=== PATIENT | female | born 1985 | race Caucasian/White ===

== ENCOUNTER 2016-12-11 08:16 | Emergency (ER) | payer OTHER ==
--- NOTE | 2016-12-11 09:12 | ED CLINICAL REPORT ---
Clinical Report - Physicians/Mid Levels [facility] [address] [place] [address] 12/11/2016 8:17 Patient: STEPHANIE MOORE Time Seen: 826; initial patient contact. Arrived- By private vehicle. Historian- patient. HISTORY OF PRESENT ILLNESS Chief Complaint: SKIN RASH. This started about 1 week ago and is still present and worsening. It was gradual in onset and has been constant. It is described as itchy and painful. It has been located on the scalp. No cause has been identified. No recent medication or insect bite. Similar symptoms previously: Several times. Recent medical care: Not recently seen/assessed. REVIEW OF SYSTEMS No fever or chills. She has had enlarged lymph nodes. All systems otherwise negative, except as recorded above. PAST HISTORY Gastroenteritis. Immunizations. Endometriosis. Headache. Cellulitis. Back Pain. Back Injury. Hidradenitis Suppurativa ADDITIONAL SURGERIES: Foot. Medications: None. Allergies: Baclofen. Flexeril. SOCIAL HISTORY Current every day smoker. Occasional alcohol use. ADDITIONAL NOTES The nursing notes have been reviewed. PHYSICAL EXAM Vital Signs: 12/11/2016 09:14 BP: 130/68. HR: 94. RR: 20. O2 saturation: 100%. Temp: 97.9 F. Have been reviewed as normal. Appearance: Alert. Oriented X3. No acute distress. ENT: Pharynx normal. Neck: Lymphadenopathy present (Moderate posterior auricular). No right anterior neck or posterior neck lymphadenopathy or left anterior neck or posterior neck lymphadenopathy. Neck supple. CVS: Normal heart rate and rhythm. Heart sounds normal. Respiratory: No respiratory distress. Breath sounds normal. Skin: No tender indurated area. Rash present on the right and left scalp (anterior aspect, posterior aspect) (Impetigo). No abscess. Neuro: Oriented X 3. PROGRESS AND PROCEDURES Disposition: Discharged home in good and improved condition. Condition: good. CLINICAL IMPRESSION Nonbullous impetigo Acute bilateral postauricular lymphadenitis. INSTRUCTIONS Prescription Medications: Clindamycin 300 mg: take 1 capsule orally every 6 hours for 7 days Diclofenac 50 mg tablets: take 1 tablet orally every 6 hours as needed for pain. Dispense twenty (20). No refill. Follow-up: Follow up with your doctor in about four days. Call for an appointment. Screening today revealed the patient's blood pressure to be in the pre-hypertensive range. The patient should follow up with a primary care provider for blood pressure management. (Electronically signed by Caio Mills Dr. 12/12/2016 20:48)
--- NOTE | 2016-12-11 09:12 | ED ORDER SUMMARY ---
..... Patient: STEPHANIE MOORE OrderSheet [facility] VisitID: [id number] [address] [place] [address] 31y, F Registration Date/Time: 12/11/2016 ORDER SHEET Weight: 104.3 kg (stated) Allergies: Baclofen, Flexeril GENERAL ORDERS: MEDICATION ORDERS: Toradol IM 60 mg (NOW) (08:35 12/11/2016 Jennyfer Christensen) (9:11 Chris R.NAshanti) IV FLUIDS: ORDER SHEET NOTES: [Electronically signed by Angie Arndt R.N. (16:45 12/11/2016)] [Electronically signed by Caio Mills Dr. (20:48 12/12/2016)] [Electronically locked/signed by Angie Arndt R.N. (16:45 12/11/2016)]
--- NOTE | 2016-12-11 09:12 | ED ORDER SUMMARY ---
..... Patient: STEPHANIE MOORE OrderSheet [facility] VisitID: [id number] [address] [place] [address] 31y, F Registration Date/Time: 12/11/2016 ORDER SHEET Weight: 104.3 kg (stated) Allergies: Baclofen, Flexeril GENERAL ORDERS: MEDICATION ORDERS: Toradol IM 60 mg (NOW) (08:35 12/11/2016 Jennyfer Christensen) (9:11 Chris R.NAshanti) IV FLUIDS: ORDER SHEET NOTES: [Electronically signed by Angie Arndt R.N. (16:45 12/11/2016)] [Electronically signed by Caio Mills Dr. (20:48 12/12/2016)] [Electronically locked/signed by Angie Arndt R.N. (16:45 12/11/2016)]
--- NOTE | 2016-12-11 09:12 | ED CLINICAL REPORT ---
Clinical Report - Physicians/Mid Levels [facility] [address] [place] [address] 12/11/2016 8:17 Patient: STEPHANIE MOORE Time Seen: 826; initial patient contact. Arrived- By private vehicle. Historian- patient. HISTORY OF PRESENT ILLNESS Chief Complaint: SKIN RASH. This started about 1 week ago and is still present and worsening. It was gradual in onset and has been constant. It is described as itchy and painful. It has been located on the scalp. No cause has been identified. No recent medication or insect bite. Similar symptoms previously: Several times. Recent medical care: Not recently seen/assessed. REVIEW OF SYSTEMS No fever or chills. She has had enlarged lymph nodes. All systems otherwise negative, except as recorded above. PAST HISTORY Gastroenteritis. Immunizations. Endometriosis. Headache. Cellulitis. Back Pain. Back Injury. Hidradenitis Suppurativa ADDITIONAL SURGERIES: Foot. Medications: None. Allergies: Baclofen. Flexeril. SOCIAL HISTORY Current every day smoker. Occasional alcohol use. ADDITIONAL NOTES The nursing notes have been reviewed. PHYSICAL EXAM Vital Signs: 12/11/2016 09:14 BP: 130/68. HR: 94. RR: 20. O2 saturation: 100%. Temp: 97.9 F. Have been reviewed as normal. Appearance: Alert. Oriented X3. No acute distress. ENT: Pharynx normal. Neck: Lymphadenopathy present (Moderate posterior auricular). No right anterior neck or posterior neck lymphadenopathy or left anterior neck or posterior neck lymphadenopathy. Neck supple. CVS: Normal heart rate and rhythm. Heart sounds normal. Respiratory: No respiratory distress. Breath sounds normal. Skin: No tender indurated area. Rash present on the right and left scalp (anterior aspect, posterior aspect) (Impetigo). No abscess. Neuro: Oriented X 3. PROGRESS AND PROCEDURES Disposition: Discharged home in good and improved condition. Condition: good. CLINICAL IMPRESSION Nonbullous impetigo Acute bilateral postauricular lymphadenitis. INSTRUCTIONS Prescription Medications: Clindamycin 300 mg: take 1 capsule orally every 6 hours for 7 days Diclofenac 50 mg tablets: take 1 tablet orally every 6 hours as needed for pain. Dispense twenty (20). No refill. Follow-up: Follow up with your doctor in about four days. Call for an appointment. Screening today revealed the patient's blood pressure to be in the pre-hypertensive range. The patient should follow up with a primary care provider for blood pressure management. (Electronically signed by Caio Mills Dr. 12/12/2016 20:48)
--- NOTE | 2016-12-12 20:48 | ED MAR SUMMARY ---
..... Medication Administration Record [facility] [address] [place] [address] Patient: STEPHANIE MOORE Visit ID: [id number] 31y, F Weight: 104.3 kg Height/Length: 67 in BMI: 36 ALLERGIES: Baclofen, Flexeril Given 09:11 12/11/2016 Angie Arndt RMouna Medication Administered: TORADOL [IM] (KETOROLAC TROMETHAMINE), Dose: 60 mg IM. Medication Ordered: Toradol IM 60 mg (NOW).
--- NOTE | 2016-12-12 20:48 | ED NURSING NOTES ---
Clinical Report - Nurses [facility] [address] [place] [address] 12/11/2016 8:17 Patient: STEPHANIE MOORE TRIAGE Triage time 08:30 Dec 11 2016. Acuity: LEVEL 4. Chief Complaint: (Bilat ear pain behind ears is swollen lymph nodes.). KAREN COMA SCORE: [place] Coma Scale: 14- eyes open to voice (3); best verbal response- oriented x 4 (5); best motor response- obeys commands (6). --09:17 Angie Arndt R.N. 09:14 12/11/16. BP: 130/68. HR: 94. RR: 20. O2 saturation: 100%. Temp: 97.9 F. Pain level now 8/10. --09:17 Angie Arndt R.N. KAREN COMA SCORE: [place] Coma Scale: 15- eyes open spontaneously (4); best verbal response- oriented x 4 (5); best motor response- obeys commands (6). --09:18 Angie Arndt R.N. Weight: 104.3 kg stated. Height/Length: 67 inches Per Patient. BMI: 36. --09:17 Angie Arndt R.N. Medications None. --09:18 Angie Arndt R.N. Allergies Baclofen. Flexeril. --09:15 Angie Arndt R.N. History Arrived by private vehicle. Historian: patient. This started yesterday. No fever, weakness, cough, difficulty breathing or skin rash. Denies muscle aches. PAST MEDICAL HX: Immunizations: up-to-date. SOCIAL HX: Current every day heavy tobacco smoker (cigarette)- less than 1 pack per day. Occasional alcohol use. SELF HARM ASSESSMENT: A self harm assessment was performed. The patient answered "no" to the question "Have you recently felt down, depressed, or hopeless?" and "Do you have thoughts of harming or killing yourself?". FALL RISK ASSESSMENT: Fall risk assessment completed. No fall risk identified. NUTRITIONAL RISK ASSESSMENT: The nutritional risk assessment revealed no deficiencies. FUNCTIONAL ASSESSMENT: Functional assessment: no impairments noted. LEARNING NEEDS ASSESSMENT: The learning needs assessment revealed no barriers. ABUSE ASSESSMENT: Abuse assessment: (yes) The patient was asked "Do you feel safe in your home?". SKIN INTEGRITY ASSESSMENT: Skin integrity risk assessment completed. No skin integrity risk identified. --:17 Angie Arndt R.N. PROBLEMS: Gastroenteritis. Immunizations. LNMP - Last Normal Menstrual Period. Endometriosis. Headache. Cellulitis. Back Pain. Back Injury. --:15 Angie Arndt R.N. Hidradenitis Suppurativa [RuleOut]. --:15 Angie Arndt R.N. ADDITIONAL SURGERIES: Foot. --:15 Angie Arndt R.N. Interventions ID band on patient. --:17 Angie Arndt R.N. PHYSICAL ASSESSMENT Ambulatory to room. ( Swollen lymp nodes behind ears). GENERAL / NEURO / PSYCH: Alert. Oriented X 4. Appears in no acute distress. Appears in pain and anxious. HEENT: Pupils equal, round and reactive to light. No facial asymmetry noted. Mucous membranes are pink. RESPIRATORY: Respirations not labored. Chest nontender. Breath sounds within normal limits. CVS: Normal sinus rhythm noted. Capillary refill less than 2 seconds. Pulses within normal limits. GI / : Abdomen soft and nontender and normal bowel sounds. SKIN: Skin intact. Skin is warm and dry. Normal skin turgor. --:18 Angie Arndt R.N. NURSING PROGRESS NOTES 09:11 12/11/2016 Toradol (Ketorolac Tromethamine) IM 60 mg given. Given in the right gluteus adrian and left gluteus adrian (split dose). Allergies verified and confirmed 5 rights. --:11 Angie Arndt R.N. Monitoring of patient in place. Reassurance given. Call light placed in reach. Side rails up x 1. Bed placed in lowest position. Brakes of bed on. --:19 Angie Arndt R.N. DISPOSITION / DISCHARGE Departure time: :Dec 11 2016. Condition at departure: improved. No learning barriers present. Discharge instructions provided and reviewed with the patient. Reviewed warnings. Reviewed medication(s). Treatments reviewed. Reviewed referrals. Patient verbalized understanding. Written instructions provided in Danish. The patient was discharged home and accompanied by family. She left the Emergency Department ambulatory and via private vehicle. Dope House Operator Helper driving. --09:19 Angie Arndt R.N. 09:14 12/11/16. BP: 130/68. HR: 94. RR: 20. O2 saturation: 100%. Temp: 97.9 F. Pain level now 04/23. --09:19 Angie Arndt R.N. Locked/Released at 12/11/2016 16:45 by Angie Arndt R.N.
--- NOTE | 2016-12-12 20:48 | ED MED RECONCILIATION SUMMARY ---
Patient: STEPHANIE MOORE Medication Reconciliation Report [facility] VisitID: [id number] [address] [place] [address] 31y, F Registration Date/Time: 12/11/2016 Weight: 104.3 kg Height/Length: 67 in. BMI: 36.0 ALLERGIES: Baclofen, Flexeril The patient's Home Medications are listed below: NONE. The source(s) of the original Home Medication information: Not obtained. The following Medications were given to the patient in the Emergency Department: Toradol [IM] IM 60 mg, administered: 12/11/2016 9:11:00 AM The following Medications were prescribed to the patient: Clindamycin 300 mg: take 1 capsule orally every 6 hours for 7 days -- Caio Mills Dr. Diclofenac 50 mg tablets: take 1 tablet orally every 6 hours as needed for pain. Dispense twenty (20). No refill. -- Caio Mills Dr.
--- NOTE | 2016-12-12 20:48 | ED DISCHARGE INSTRUCTIONS ---
Patient: STEPHANIE MOORE General Instructions [facility] VisitID: [id number] [place] [address] 31y, F Registration Date/Time: 12/11/2016 Nonbullous impetigo Acute bilateral postauricular lymphadenitis. INSTRUCTIONS Prescription Medications: Clindamycin 300 mg: take 1 capsule orally every 6 hours for 7 days Diclofenac 50 mg tablets: take 1 tablet orally every 6 hours as needed for pain. Dispense twenty (20). No refill. Follow-up: Follow up with your doctor in about four days. Call for an appointment. Screening today revealed the patient's blood pressure to be in the pre-hypertensive range. The patient should follow up with a primary care provider for blood pressure management. ADDITIONAL INFORMATION Impetigo Impetigo is the name for a bacterial infection of the skin. It is common in children. It may start as an infected insect bite or scratch and spread rapidly to other areas of the body. It is contagious and can be given to other children by touching. The sores usually have a montano brown crust and grow gradually larger as they spread. Impetigo requires treatment with an antibiotic. Home care The following guidelines will help you care for your infection at home: Trim fingernails and cover sores with an adhesive bandage if necessary to prevent scratching. Picking at the sores may leave a scar. Wash hands (yours and your child's) often. This will avoid spreading the infection to other parts of the body and to other children. Do not let your child share washcloths, towels, pillows, sheets, or clothes with others. Wash these items in hot water before using again. The sores should be washed three times a day with soap and water. Use a washcloth to scrub the sores and remove the crust. Then apply an antibacterial cream as directed. If antibiotic pills or liquid was prescribed, be sure your child takes all the medicine until it is gone. Your child should stay out of school until completing two full days of antibiotic treatment. Use acetaminophen for fever, fussiness or discomfort, unless another medicine was prescribed. In infants over six months of age, you may use ibuprofen instead of acetaminophen. If your child has chronic liver or kidney disease or has ever had a stomach ulcer or GI bleeding, talk with your doctor before using these medicines. (Aspirin should never be used in anyone under 18 years of age who is ill with a fever. It may cause severe liver damage. Follow-up care Follow up with your doctor or this facility if the sores continue to spread after three days of treatment. It will take about 710 days to heal completely. When to seek medical care Get prompt medical attention if any of the following occur: Increasing number of sores or spreading areas of redness after two days of treatment with antibiotics Increasing swelling, or pain Fever of 100.4F (38C) oral or 101.4F (38.5C) rectal or higher, not better with fever medication Increased amounts of fluid or pus coming from the sores Unusual drowsiness, weakness, or change in behavior Loss of appetite or vomiting Clindamycin Hydrochloride Oral capsule What is this medicine? CLINDAMYCIN (KLIN da VIVIEN sin) is a lincosamide antibiotic. It is used to treat certain kinds of bacterial infections. It will not work for colds, flu, or other viral infections. How should I use this medicine? Take this medicine by mouth with a full glass of water. Follow the directions on the prescription label. You can take this medicine with food or on an empty stomach. If the medicine upsets your stomach, take it with food. Take your medicine at regular intervals. Do not take your medicine more often than directed. Take all of your medicine as directed even if you think your are better. Do not skip doses or stop your medicine early. Talk to your armoring machine operator regarding the use of this medicine in children. Special care may be needed. What side effects may I notice from receiving this medicine? Side effects that you should report to your doctor or health health care administrator as soon as possible: allergic reactions like skin rash, itching or hives, swelling of the face, lips, or tongue dark urine pain on swallowing redness, blistering, peeling or loosening of the skin, including inside the mouth unusual bleeding or bruising unusually weak or tired yellowing of eyes or skin Side effects that usually do not require medical attention (report to your doctor or health health care administrator if they continue or are bothersome): diarrhea itching in the rectal or genital area joint pain nausea, vomiting stomach pain What may interact with this medicine? chloramphenicol erythromycin kaolin products What if I miss a dose? If you miss a dose, take it as soon as you can. If it is almost time for your next dose, take only that dose. Do not take double or extra doses. Where should I keep my medicine? Keep out of the reach of children. Store at room temperature between 20 and 25 degrees C (68 and 77 degrees F). Throw away any unused medicine after the expiration date. What should I tell my health care provider before I take this medicine? They need to know if you have any of these conditions: kidney disease liver disease stomach problems like colitis an unusual or allergic reaction to clindamycin, lincomycin, or other medicines, foods, dyes like tartrazine or preservatives or trying to get breast-feeding What should I watch for while using this medicine? Tell your doctor or healthcare professional if your symptoms do not start to get better or if they get worse. Do not treat diarrhea with over the counter products. Contact your doctor if you have diarrhea that lasts more than 2 days or if it is severe and watery. You have been given the following additional information: Impetigo (Child) Clindamycin Hydrochloride Oral capsule (Electronically signed by Caio Mills Dr. 12/12/2016 20:48)
--- NOTE | 2016-12-12 20:48 | ED MAR SUMMARY ---
..... Medication Administration Record [facility] [address] [place] [address] Patient: STEPHANIE MOORE Visit ID: [id number] 31y, F Weight: 104.3 kg Height/Length: 67 in BMI: 36 ALLERGIES: Baclofen, Flexeril Given 09:11 12/11/2016 Angie Arndt RMouna Medication Administered: TORADOL [IM] (KETOROLAC TROMETHAMINE), Dose: 60 mg IM. Medication Ordered: Toradol IM 60 mg (NOW).
--- NOTE | 2016-12-12 20:48 | ED NURSING NOTES ---
Clinical Report - Nurses [facility] [address] [place] [address] 12/11/2016 8:17 Patient: STEPHANIE MOORE TRIAGE Triage time 08:30 Dec 11 2016. Acuity: LEVEL 4. Chief Complaint: (Bilat ear pain behind ears is swollen lymph nodes.). KAREN COMA SCORE: [place] Coma Scale: 14- eyes open to voice (3); best verbal response- oriented x 4 (5); best motor response- obeys commands (6). --09:17 Angie Arndt R.N. 09:14 12/11/16. BP: 130/68. HR: 94. RR: 20. O2 saturation: 100%. Temp: 97.9 F. Pain level now 8/10. --09:17 Angie Arndt R.N. KAREN COMA SCORE: [place] Coma Scale: 15- eyes open spontaneously (4); best verbal response- oriented x 4 (5); best motor response- obeys commands (6). --09:18 Angie Arndt R.N. Weight: 104.3 kg stated. Height/Length: 67 inches Per Patient. BMI: 36. --09:17 Angie Arndt R.N. Medications None. --09:18 Angie Arndt R.N. Allergies Baclofen. Flexeril. --09:15 Angie Arndt R.N. History Arrived by private vehicle. Historian: patient. This started yesterday. No fever, weakness, cough, difficulty breathing or skin rash. Denies muscle aches. PAST MEDICAL HX: Immunizations: up-to-date. SOCIAL HX: Current every day heavy tobacco smoker (cigarette)- less than 1 pack per day. Occasional alcohol use. SELF HARM ASSESSMENT: A self harm assessment was performed. The patient answered "no" to the question "Have you recently felt down, depressed, or hopeless?" and "Do you have thoughts of harming or killing yourself?". FALL RISK ASSESSMENT: Fall risk assessment completed. No fall risk identified. NUTRITIONAL RISK ASSESSMENT: The nutritional risk assessment revealed no deficiencies. FUNCTIONAL ASSESSMENT: Functional assessment: no impairments noted. LEARNING NEEDS ASSESSMENT: The learning needs assessment revealed no barriers. ABUSE ASSESSMENT: Abuse assessment: (yes) The patient was asked "Do you feel safe in your home?". SKIN INTEGRITY ASSESSMENT: Skin integrity risk assessment completed. No skin integrity risk identified. --:17 Angie Arndt R.N. PROBLEMS: Gastroenteritis. Immunizations. LNMP - Last Normal Menstrual Period. Endometriosis. Headache. Cellulitis. Back Pain. Back Injury. --:15 Angie Arndt R.N. Hidradenitis Suppurativa [RuleOut]. --:15 Angie Arndt R.N. ADDITIONAL SURGERIES: Foot. --:15 Angie Arndt R.N. Interventions ID band on patient. --:17 Angie Arndt R.N. PHYSICAL ASSESSMENT Ambulatory to room. ( Swollen lymp nodes behind ears). GENERAL / NEURO / PSYCH: Alert. Oriented X 4. Appears in no acute distress. Appears in pain and anxious. HEENT: Pupils equal, round and reactive to light. No facial asymmetry noted. Mucous membranes are pink. RESPIRATORY: Respirations not labored. Chest nontender. Breath sounds within normal limits. CVS: Normal sinus rhythm noted. Capillary refill less than 2 seconds. Pulses within normal limits. GI / : Abdomen soft and nontender and normal bowel sounds. SKIN: Skin intact. Skin is warm and dry. Normal skin turgor. --:18 Angie Arndt R.N. NURSING PROGRESS NOTES 09:11 12/11/2016 Toradol (Ketorolac Tromethamine) IM 60 mg given. Given in the right gluteus adrian and left gluteus adrian (split dose). Allergies verified and confirmed 5 rights. --:11 Angie Arndt R.N. Monitoring of patient in place. Reassurance given. Call light placed in reach. Side rails up x 1. Bed placed in lowest position. Brakes of bed on. --:19 Angie Arndt R.N. DISPOSITION / DISCHARGE Departure time: :Dec 11 2016. Condition at departure: improved. No learning barriers present. Discharge instructions provided and reviewed with the patient. Reviewed warnings. Reviewed medication(s). Treatments reviewed. Reviewed referrals. Patient verbalized understanding. Written instructions provided in Egyptian. The patient was discharged home and accompanied by family. She left the Emergency Department ambulatory and via private vehicle. Greige Goods Examiner driving. --09:19 Angie Arndt R.N. 09:14 12/11/16. BP: 130/68. HR: 94. RR: 20. O2 saturation: 100%. Temp: 97.9 F. Pain level now 04/23. --09:19 Angie Arndt R.N. Locked/Released at 12/11/2016 16:45 by Angie Arndt R.N.
--- NOTE | 2016-12-12 20:48 | ED MED RECONCILIATION SUMMARY ---
Patient: STEPHANIE MOORE Medication Reconciliation Report [facility] VisitID: [id number] [address] [place] [address] 31y, F Registration Date/Time: 12/11/2016 Weight: 104.3 kg Height/Length: 67 in. BMI: 36.0 ALLERGIES: Baclofen, Flexeril The patient's Home Medications are listed below: NONE. The source(s) of the original Home Medication information: Not obtained. The following Medications were given to the patient in the Emergency Department: Toradol [IM] IM 60 mg, administered: 12/11/2016 9:11:00 AM The following Medications were prescribed to the patient: Clindamycin 300 mg: take 1 capsule orally every 6 hours for 7 days -- Caio Mills Dr. Diclofenac 50 mg tablets: take 1 tablet orally every 6 hours as needed for pain. Dispense twenty (20). No refill. -- Caio Mills Dr.
== END 2016-12-11 09:20 | disposition home or self-care (01) ==
LOC: ED SRH 08:16
DX: L01.01 Non-bullous impetigo (principal); L04.8 Acute lymphadenitis of other sites; F17.210 Nicotine dependence, cigarettes, uncomplicated; Z88.8 Allergy status to other drugs, medicaments and biological substances

== ENCOUNTER 2017-02-14 04:31 | Emergency (ER) | payer OTHER ==
--- NOTE | 2017-02-14 06:43 | ED NURSING NOTES ---
Clinical Report - Nurses [place] [address] [place] [address] 02/14/2017 4:32 Patient: STEPHANIE MOORE TRIAGE Triage time 04:40. Acuity: LEVEL 3. Chief Complaint: ABDOMINAL PAIN, NAUSEA and VOMITING and FEVER, CHILLS, ACHES, PAINFUL URINATION and FLANK PAIN. --05:00 Adwoa Rae R.N. 04:44 02/14/17. BP: 125/89 taken on the left arm, while lying. HR: 125. RR: 18. O2 saturation: 100% on room air. Temp: 98.6 F. Pain level now: 06/23. --05:00 Adwoa Rae R.N. Weight: 86.1 kg stated. Height/Length: 67 inches Per Patient. BMI: 29.8. --04:57 Adwoa Rae R.N. Medications None. --04:58 Adwoa Rae R.N. Allergies No Known Drug Allergy. --04:58 Adwoa Rae R.N. History Arrived by private vehicle. Historian: patient. Accompanied by friend. ( 2 week of burning with urination, flank pain for 2 days). PAST MEDICAL HX: Immunizations: up-to-date. Last normal menstrual period- 1 months ago. Sexual history - sexually active. No contraception. SOCIAL HX: Light tobacco smoker (cigarette)- less than 1/2 a pack per day. No alcohol use or drug use. No infectious disease exposure. No known contact with a sick individual. ABUSE ASSESSMENT: No report of abuse. SELF HARM ASSESSMENT: A self harm assessment was performed. The patient answered "no" to the question "Have you recently felt down, depressed, or hopeless?", "Have you noticed less interest or pleasure in doing things?", "Do you have thoughts of harming or killing yourself?", "Are you here because you tried to hurt yourself?", "Have you ever tried to hurt yourself before today?", "Have you recently had thoughts about harming or killing others?" and "Do you have any dangerous items in your possession?". FALL RISK ASSESSMENT: Fall risk assessment completed. No fall risk identified. NUTRITIONAL RISK ASSESSMENT: The nutritional risk assessment revealed no deficiencies. FUNCTIONAL ASSESSMENT: Functional assessment: no impairments noted. LEARNING NEEDS ASSESSMENT: The learning needs assessment revealed no barriers. SKIN INTEGRITY ASSESSMENT: Skin integrity risk assessment completed. No skin integrity risk identified. --05:00 Adwoa Rae R.N. PROBLEMS: Lymphadenitis. Impetigo. Gastroenteritis. Endometriosis. Headache. Cellulitis. Back Pain. Back Injury. --04:59 Adwoa Rae R.N. ADDITIONAL SURGERIES: Foot. --04:59 Adwoa Rae R.N. Interventions ID band on patient. --05:00 Adwoa Rae R.N. PHYSICAL ASSESSMENT Ambulatory to room. GENERAL / NEURO / PSYCH: Alert. Oriented X 4. Appears in pain. HEENT: Mucous membranes are pink. RESPIRATORY: Respirations not labored. Breath sounds within normal limits. CVS: Normal sinus rhythm noted. Cardiac rhythm: sinus tachycardia. Capillary refill less than 2 seconds. GI / : The patient has had constant nausea. Abdomen soft. Bowel sounds within normal limits. A moderate amount of clear, white and yellow vaginal discharge present. SKIN: Skin is warm and dry. --05:02 Adwoa Rae R.N. NURSING PROGRESS NOTES Patient gowned. Two patient identifiers checked. Call light placed in reach. Side rails up x 2. Bed placed in lowest position. Brakes of bed on. --05:02 Adwoa Rae R.N. Patient ID band checked for patient name: patient confirmed. Instructions provided to collect clean catch urine and patient verbalized understanding. Clean catch urine collected with return of robb-colored cloudy urine; sample sent to lab for urinalysis. Specimen labeled in the presence of the patient. --05:02 Adwoa Rae R.N. Patient ready for evaluation- chart flagged. --05:02 Adwoa Rae R.N. 05:11 02/14/2017 Site #1 started via IV in the left antecubital space with an 20g angiocath, with aseptic technique and good blood return; one attempt. Blood drawn: rainbow set. Labeled in the presence of the patient and sent to the lab. Saline lock flushed with 10 mL saline. --05:19 Adwoa Rae R.N. 05:11 02/14/2017 Started bag #1 1000 mL IV Fluids IV NS (Saline); bolus of 1000 mL wide open then over 1 hour(s) via site #1. Allergies verified and confirmed 5 rights. IV patency established. IV site checked: no pain, redness, or swelling. IV flushed thoroughly pre- and post-medication administration. --05:19 Adwoa Rae R.N. 05:25 02/14/2017 Toradol IVP 30 mg given over 2 minute(s) via site #1. Allergies verified and confirmed 5 rights. IV patency established. IV site checked: no pain, redness, or swelling. IV flushed thoroughly pre- and post-medication administration. IVP given by RN. --05:30 Adwoa Rae R.N. 05:27 02/14/2017 Zofran (Ondansetron HCl) IVP 4 mg given over 2 minute(s) via site #1. Allergies verified and confirmed 5 rights. IV patency established. IV site checked: no pain, redness, or swelling. IV flushed thoroughly pre- and post-medication administration. IVP given by RN. --05:30 Adwoa Rae R.N. 06:30 02/14/2017 Started 1 gm of Rocephin (CefTRIAXone Sodium) IVPB in bag #1 50 mL; over 20 minute(s) via site #1 via IV pump. Allergies verified and confirmed 5 rights. IV patency established. IV site checked: no pain, redness, or swelling. IV flushed thoroughly pre- and post-medication administration. --06:30 Adwoa Rae R.N. 06:31 02/14/2017 IV Fluids IV NS Discontinued: bag #1 completed. Total amount infused: 1000 mL. IV patency established. IV site checked: no pain, redness, or swelling. IV flushed thoroughly. --06:31 Adwoa Rae R.N. DISPOSITION / DISCHARGE Condition at departure: stable. The goals identified in the patient's plan of care were met. No learning barriers present. Discharge instructions provided and reviewed with the patient. Reviewed medication(s) side effects, precautions, dosing and course information. Prescription(s) given to the patient. Reviewed need for increased fluid intake. Patient verbalized understanding. Written instructions provided in Cymro. ( Follow up with your PCP in three days. Increase fluids and rest until feeling better. You may take anti-inflammatories as needed for pain. Take medications as prescribed. Patient verbalized understanding and had no additional questions at this time.). The patient was discharged by the physician. She was discharged home and accompanied by treasury accountant. She left the Emergency Department ambulatory and via private vehicle. [place] [employer] driving. FALL RISK ASSESSMENT: Fall risk assessment completed. No fall risk identified. --07:05 Vida Malik 06:53 02/14/17. BP: 101/63. HR: 99. RR: 20. O2 saturation: 96% on room air. Temp: 98.1 F (oral). Pain level now: 7/10. --07:05 Vida Malik 06:55 02/14/2017 Site #1 removed upon discharge. Catheter intact. Bandaid applied. --07:05 Vida Malik. Locked/Released at 02/15/2017 4:47 by Adwoa Rae R.N.
--- NOTE | 2017-02-14 06:43 | ED ORDER SUMMARY ---
..... Patient: STEPHANIE MOORE OrderSheet [facility] VisitID: [id number] [address] [place] [address] 31y, F Registration Date/Time: 02/14/2017 ORDER SHEET Weight: 86.1 kg (stated) Allergies: No Known Drug Allergy GENERAL ORDERS: CBC w Diff Urgent (05:03 02/14/2017 Jennyfer Christensen) (Ack 5:04 Bishnuuga) (5:19 Luigi R.N.) CMP Urgent (05:02/14/2017 Jennyfer Christensen) (Ack 5:04 Bishnuuga) (5:19 Luigi R.N.) UA-Culture if indicated Urgent (05:02/14/2017 Jennyfer Christensen) (Ack 5:04 Bishnuuga) (5:19 Luigi R.N.) Urine Drug Screen Urgent (05:02/14/2017 Jennyfer Christensen) (Ack 5:04 Bishnuuga) (5:19 Luigi R.N.) Urine Urgent (05:03 02/14/2017 Jennyfer Christensen) (Ack 5:04 Bar) (5:20 Luigi R.N.) MEDICATION ORDERS: IV FLUIDS: IV NS : initial bolus none -, then 1000 mL/hr for X1 (NOW) (05:02 02/14/2017 Jennyfer Christensen) (5:19 Luigi R.N.) Toradol IV 30 mg (NOW) (05:10 02/14/2017 Jennyfer Christensen) (5:30 Luigi R.N.) Zofran IV 4 mg (NOW) (05:10 02/14/2017 Jennyfer Christensen) (5:30 Luigi R.N.) Rocephin IV 1 gm/50mL (NOW) (06:17 02/14/2017 Jennyfer Christensen) (Ack 6:25 Luigi R.N.) (6:30 Luigi R.N.) ORDER SHEET NOTES: [Electronically signed by Caio Mills Dr. (20:46 02/14/2017)] [Electronically signed by Adwoa Rae R.N. (04:47 02/15/2017)] [Electronically locked/signed by Adwoa Rae R.N. (04:47 02/15/2017)]
--- NOTE | 2017-02-14 06:43 | ED ORDER SUMMARY ---
..... Patient: STEPHANIE MOORE OrderSheet [facility] VisitID: [id number] [address] [place] [address] 31y, F Registration Date/Time: 02/14/2017 ORDER SHEET Weight: 86.1 kg (stated) Allergies: No Known Drug Allergy GENERAL ORDERS: CBC w Diff Urgent (05:03 02/14/2017 Jennyfer Christensen) (Ack 5:04 Bishnuuga) (5:19 Luigi R.N.) CMP Urgent (05:02/14/2017 Jennyfer Christensen) (Ack 5:04 Bishnuuga) (5:19 Luigi R.N.) UA-Culture if indicated Urgent (05:02/14/2017 Jennyfer Christensen) (Ack 5:04 Bishnuuga) (5:19 Luigi R.N.) Urine Drug Screen Urgent (05:02/14/2017 Jennyfer Christensen) (Ack 5:04 Bishnuuga) (5:19 Luigi R.N.) Urine Urgent (05:03 02/14/2017 Jennyfer Christensen) (Ack 5:04 Bar) (5:20 Luigi R.N.) MEDICATION ORDERS: IV FLUIDS: IV NS : initial bolus none -, then 1000 mL/hr for X1 (NOW) (05:02 02/14/2017 Jennyfer Christensen) (5:19 Luigi R.N.) Toradol IV 30 mg (NOW) (05:10 02/14/2017 Jennyfer Christensen) (5:30 Luigi R.N.) Zofran IV 4 mg (NOW) (05:10 02/14/2017 Jennyfer Christensen) (5:30 Luigi R.N.) Rocephin IV 1 gm/50mL (NOW) (06:17 02/14/2017 Jennyfer Christensen) (Ack 6:25 Luigi R.N.) (6:30 Luigi R.N.) ORDER SHEET NOTES: [Electronically signed by Caio Mills Dr. (20:46 02/14/2017)] [Electronically signed by Adwoa Rae R.N. (04:47 02/15/2017)] [Electronically locked/signed by Adwoa Rae R.N. (04:47 02/15/2017)]
--- NOTE | 2017-02-14 06:43 | ED CLINICAL REPORT ---
Clinical Report - Physicians/Mid Levels [facility] [address] [place] [address] 02/14/2017 4:32 Patient: STEPHANIE MOORE Time Seen: 04:45; initial patient contact. Arrived- By private vehicle. Historian- patient. HISTORY OF PRESENT ILLNESS Chief Complaint: FLANK PAIN. At its maximum, severity described as moderate. When seen in the E.D., severity described as moderate. Modifying factors. Not worsened by anything. Not relieved by anything. It is described as sharp and burning. No radiation. It is described as located in the right abdomen. This started 2 days. The patient has had nausea. No vomiting or diarrhea. Similar symptoms previously: None. Recent medical care: The patient was seen recently in a clinic (2 weeks ago and Tx'd for a UTI). REVIEW OF SYSTEMS The patient has had fever, chills and pain on urination. The patient has had urinary frequency. All systems otherwise negative, except as recorded above. PAST HISTORY Gastroenteritis. Immunizations. Endometriosis. Headache. Cellulitis. Back Pain. Back Injury. Hidradenitis Suppurativa ADDITIONAL SURGERIES: Foot. Medications: None. Allergies: No Known Drug Allergy. SOCIAL HISTORY Current every day smoker. ADDITIONAL NOTES The nursing notes have been reviewed. PHYSICAL EXAM Vital Signs: 02/14/2017 04:44 BP: 125/89. HR: 125. RR: 18. O2 saturation: 100%. Temp: 98.6 F. Pain level now: 10/10. Have been reviewed. Blood pressure normal. Tachycardic. Respiratory rate normal. Temperature normal. Oxygen saturation normal. Appearance: Alert. Oriented X3. No acute distress. Eyes: Eyes normal inspection. ENT: Dry mucous membranes present. CVS: Tachycardia. Heart sounds normal. Rhythm normal. Respiratory: No respiratory distress. Breath sounds normal. Abdomen: Soft. Moderate tenderness in the right side of the abdomen with guarding present. No rebound tenderness or obturator or psoas sign present. Bowel sounds normal. Back: Moderate soft-tissue tenderness in the right lower and left lower lumbar area. No CVA tenderness or vertebral point tenderness. Skin: Skin warm and dry. Normal skin color. Extremities: No lower extremity edema. Neuro: Oriented X 3. No motor deficit. LABS, X-RAYS, AND EKG Laboratory Tests: UA-Culture if indicated: (MERISSA: 02/14/2017 05:00) ( [facility] 02/14/2017 05:39) Final results Test Result Flag Units (Reference) URINE COLOR YELLOW URINE APPEARANCE TURBID URINE GLUCOSE NEGATIVE (NEGATIVE) URINE BILIRUBIN NEGATIVE (NEGATIVE) URINE BILIRUBIN ICTOTEST NEGATIVE (NEGATIVE) URINE KETONE 2+ (NEGATIVE) URINE SPECIFIC GRAVITY 1.025 (1.010-1.030) URINE PH 6.0 (5.0-8.0) URINE PROTEIN 2+ (NEGATIVE) URINE UROBILINOGEN 4.0 EU/dL (0.2-1.0) The urobilinogen reagent area may react with interferingsubstances known to react with Eder's reagent such asp-aminosalicylic acid and sulfonamides. Atypical colorreactions may be obtained in the presence of highconcentrations of p-aminobenzoic acid. The absence ofurobilinogen cannot be determined with this test. URINE NITRITE POSITIVE (NEGATIVE) URINE BLOOD 2+ (NEGATIVE) URINE LEUK ESTERASE POSITIVE (NEGATIVE) URINE RBC 5-10 rbc/hpf (0-1) URINE WBC 25-50 wbc/hpf (0-1) URINE EPITHELIAL CELLS 1-3 EPI/hpf (0-5) URINE BACTERIA MANY (4+) (NONE SEEN) URINE COMMENT CULTURE INDICATED URINE CULTURES ARE SET-UP BASED ON THE FOLLOWING CRITERIA:POSITIVE NITRITEPOSITIVE LEUKOCYTE ESTERASEGREATER THAN 10 WHITE BLOOD CELLSMODERATE (2+) OR GREATER BACTERIA Urine: (MERISSA: 02/14/2017 05:00) ( [facility] 02/14/2017 05:35) Final results Test Result Flag Units (Reference) URINE NEGATIVE CBC w Diff: (MERISSA: 02/14/2017 05:11) ( [facility] 02/14/2017 06:15) Final results Test Result Flag Units (Reference) WHITE BLOOD COUNT 11.2 K/uL (4.5-11.5) RED BLOOD COUNT 4.26 M/uL (4.00-5.20) HEMOGLOBIN 12.1 gm/dL (12.0-16.0) HEMATOCRIT 36.7 % (36.0-46.0) MEAN CELL VOLUME 86 fL (80-100) MEAN CORPUSCULAR HGB 28 pg (26-34) MEAN CORPUSCULAR HGB CONC 33 g/dL (31-37) RED CELL DISTRIBUTION WIDTH 13.4 % (11.6-14.8) PLATELET COUNT 204 K/uL (150-400) NEUTROPHIL % 76.5 H % (50-75) LYMPH % 12.9 L % (25-40) MONO % 10.3 % (3-14) EOSINOPHIL % 0.2 % (0-4) BASOPHIL % 0.1 % (0-2) Urine Drug Screen: (MERISSA: 02/14/2017 05:00) ( [facility] 02/14/2017 05:46) Final results Test Result Flag Units (Reference) AMPHETAMINE/METHAMPHETAMINE POSITIVE H (NEGATIVE) BARBITURATE NEGATIVE (NEGATIVE) BENZODIAZEPINE NEGATIVE (NEGATIVE) CANNABINOID NEGATIVE (NEGATIVE) COCAINE NEGATIVE (NEGATIVE) ECSTASY NEGATIVE (NEGATIVE) METHADONE NEGATIVE (NEGATIVE) OPIATE POSITIVE H (NEGATIVE) The urine drug screen is a qualitative screening test fordrug overdose and abuse. All screen results should beconsidered as presumptive.Drugs screened for are as follows:BenzodiazepinesCocaineAmphetamines/MetamphetaminesTHC (Tetrahydrocannabinol)OpiatesBarbituratesEcstasyMethadonePositive results are unconfirmed. For confirmation, notifythe lab for the specimen to be sent to the reference lab.All confirmations must be performed by a differentmethodology.The ingestion of natural herbal and plant productscontaining Ephedra/Ephedra metabolites can produce in urineone or more substances capable of cross reacting withamphetamine/methamphetamine immunoassays. These testsprovide a preliminary result only. A more specificalternative chemical method must be used to obtain aconfirmed analytical result. CMP: (MERISSA: 02/14/2017 05:11) ( Wig[facility] 02/14/2017 05:48) Final results Test Result Flag Units (Reference) GLUCOSE 118 H mg/dL (70-110) BUN 16 mg/dL (7-18) CREATININE 1.1 mg/dL (0.6-1.3) Estimated GFR >60 mL/min Estimated GFR- >60 mL/min Note: Persistent reduction over 3 months in eGFR<60 mL/min/1.73 m2 defines CKD. Patients with eGFR values>=60 mL/min/1.73 m2 may also have CKD if evidence ofpersistent proteinuria. Additional information may be foundat www.kidney.org. SODIUM 138 mmol/L (136-145) POTASSIUM 3.4 L mmol/L (3.5-5.1) CHLORIDE 101 mmol/L (98-107) CARBON DIOXIDE 24 mmol/L (21-32) CALCIUM 8.9 mg/dL (8.5-10.1) TOTAL PROTEIN 6.9 g/dL (6.4-8.2) ALBUMIN 2.8 L g/dL (3.3-5.0) BILIRUBIN, TOTAL 0.6 mg/dL (0.0-1.0) ALKALINE PHOSPHATASE 85 U/L (46-116) AST (SGOT) 14 L U/L (15-37) ALT (SGPT) 20 U/L (12-78) . PROGRESS AND PROCEDURES Course of Care: Toradol 30 mg IVP given. Zofran 4 mg IVP given. Physical exam findings are improved. Symptoms much better. Disposition: Discharged home in good and improved condition. Condition: good. CLINICAL IMPRESSION Acute urinary tract infection with cystitis. INSTRUCTIONS Your Current Medications: CONTINUE TAKING THE FOLLOWING MEDICATIONS: None*. Prescription Medications: Zofran (orally disintegrating tablets) 4 mg: take 1 orally every 6 hours as needed for nausea. Dispense ten (10). No refill. Substitution is permissible. Cefixime 400 mg: take 1 tab orally every day for 7 days. No refill. Follow-up: Follow up with your doctor in about two days. Call for an appointment. Screening today revealed the patient's blood pressure to be in the pre-hypertensive range. The patient should follow up with a primary care provider for blood pressure management. (Electronically signed by Caio Mills Dr. 02/14/2017 20:46)
--- NOTE | 2017-02-15 04:48 | ED MAR SUMMARY ---
..... Medication Administration Record [facility] [address] [place] [address] Patient: STEPHANIE MOORE Visit ID: [id number] 31y, F Weight: 86.1 kg Height/Length: 67 in BMI: 29.8 ALLERGIES: No Known Drug Allergy Start 05:11 02/14/2017 Adwoa Rae R.N., Stop 06:31 02/14/2017 Adwoa Rae R.N. Medication Administered: IV NS (SALINE), Dose: IV Fluids over 1 hour(s), Bolus: 1000 mL wide open, Dispensed: 1000 mL bag, Site: #1 left AC. Medication Ordered: IV NS : initial bolus none -, then 1000 mL/hr for X1 (NOW). Given 05:25 02/14/2017 Adwoa Rae R.N. Medication Administered: TORADOL [IVP], Dose: 30 mg IVP over 2 minute(s), Site: #1 left AC. Medication Ordered: Toradol IV 30 mg (NOW). Given 05:27 02/14/2017 Adwoa Rae R.N. Medication Administered: ZOFRAN [IVP] (ONDANSETRON HCL), Dose: 4 mg IVP over 2 minute(s), Site: #1 left AC. Medication Ordered: Zofran IV 4 mg (NOW). Start 06:30 02/14/2017 Adwoa Rae R.N. Medication Administered: ROCEPHIN [IVPB] (CEFTRIAXONE SODIUM), Dose: 1 gm IVPB over 20 minute(s), Dispensed: 50 mL bag, Site: #1 left AC. Medication Ordered: Rocephin IV 1 gm/50mL (NOW).
--- NOTE | 2017-02-15 04:48 | ED DISCHARGE INSTRUCTIONS ---
Patient: STEPHANIE MOORE General Instructions [facility] VisitID: [id number] [place] [address] 31y, F Registration Date/Time: 02/14/2017 Acute urinary tract infection with cystitis. INSTRUCTIONS Your Current Medications: CONTINUE TAKING THE FOLLOWING MEDICATIONS: None*. Prescription Medications: Zofran (orally disintegrating tablets) 4 mg: take 1 orally every 6 hours as needed for nausea. Dispense ten (10). No refill. Substitution is permissible. Cefixime 400 mg: take 1 tab orally every day for 7 days. No refill. Follow-up: Follow up with your doctor in about two days. Call for an appointment. Screening today revealed the patient's blood pressure to be in the pre-hypertensive range. The patient should follow up with a primary care provider for blood pressure management. ADDITIONAL INFORMATION Bladder Infection,Female (Adult) A bladder infection ("cystitis" or "UTI") usually causes a constant urge to urinate and a burning when passing urine. Urine may be cloudy, smelly or dark. There may be pain in the lower abdomen. A bladder infection occurs when bacteria from the vaginal area enter the bladder opening (urethra). This can occur from sexual intercourse, wearing tight clothing, dehydration and other factors. Home Care: Drink lots of fluids (at least 6-8 glasses a day, unless you must restrict fluids for other medical reasons). This will force the medicine into your urinary system and flush the bacteria out of your body. Avoid sexual intercourse until your symptoms are gone. Avoid caffeine, alcohol and spicy foods. These can irritate the bladder. A bladder infection is treated with antibiotics. You may also be given Pyridium (generic = phenazopyridine) to reduce the burning sensation. This medicine will cause your urine to become a bright orange color. The orange urine may stain clothing. You may wear a pad or panty-liner to protect clothing. Preventing Future Infections: Always wipe from front to back after a bowel movement. Keep the genital area clean and dry. Drink plenty of fluids each day to avoid dehydration. Both sexual partners should wash before intercourse. Urinate right after intercourse to flush out the bladder. Wear cotton underwear and cotton-lined panty hose; avoid tight-fitting pants. If you are on control pills and are having frequent bladder infections, discuss with your doctor. Follow Up: Return to this facility or see your doctor if ALL symptoms are not gone after three days of treatment. Get Prompt Medical Attention if any of the following occur: Fever of 100.4F (38C) or higher, or as directed by your healthcare provider No improvement by the third day of treatment Increasing back or abdominal pain Repeated vomiting; unable to keep medicine down Weakness, dizziness or fainting Vaginal discharge Pain, redness or swelling in the labia (outer vaginal area) Ondansetron Oral disintegrating tablet What is this medicine? ONDANSETRON (on YOANDY se ehsan) is used to treat nausea and vomiting caused by chemotherapy. It is also used to prevent or treat nausea and vomiting after surgery. How should I use this medicine? These tablets are made to dissolve in the mouth. Do not try to push the tablet through the foil backing. With dry hands, peel away the foil backing and gently remove the tablet. Place the tablet in the mouth and allow it to dissolve, then swallow. While you may take these tablets with water, it is not necessary to do so. Talk to your molder shoulder pad regarding the use of this medicine in children. Special care may be needed. What side effects may I notice from receiving this medicine? Side effects that you should report to your doctor or health multi care technician as soon as possible: allergic reactions like skin rash, itching or hives, swelling of the face, lips, or tongue breathing problems dizziness fast or irregular heartbeat feeling faint or lightheaded, falls fever and chills swelling of the hands and feet tightness in the chest Side effects that usually do not require medical attention (report to your doctor or health multi care technician if they continue or are bothersome): constipation or diarrhea headache What may interact with this medicine? Do not take this medicine with any of the following medications: -apomorphine -cisapride -dofetilide -dronedarone -pimozide -thioridazine -ziprasidone This medicine may also interact with the following medications: -carbamazepine -phenytoin -rifampicin -tramadol -other medicines that prolong the QT interval (cause an abnormal heart rhythm) What if I miss a dose? If you miss a dose, take it as soon as you can. If it is almost time for your next dose, take only that dose. Do not take double or extra doses. Where should I keep my medicine? Keep out of the reach of children. Store between 2 and 30 degrees C (36 and 86 degrees F). Throw away any unused medicine after the expiration date. What should I tell my health care provider before I take this medicine? They need to know if you have any of these conditions: heart disease history of irregular heartbeat liver disease low levels of magnesium or potassium in the blood an unusual or allergic reaction to ondansetron, granisetron, other medicines, foods, dyes, or preservatives or trying to get breast-feeding What should I watch for while using this medicine? Check with your doctor or health multi care technician as soon as you can if you have any sign of an allergic reaction. Cefixime Oral tablet What is this medicine? CEFIXIME (sef IX eem) is a cephalosporin antibiotic. It is used to treat certain kinds of bacterial infections. It will not work for colds, flu, or other viral infections. How should I use this medicine? Take this medicine by mouth with a glass of water. Follow the directions on the prescription label. You can take it with or without food. If it upsets your stomach, take it with food. Take your medicine at regular intervals. Do not take it more often than directed. Take all of your medicine as directed even if you think your are better. Do not skip doses or stop your medicine early. Talk to your molder shoulder pad regarding the use of this medicine in children. While this drug may be prescribed for children as young as 6 months for selected conditions, precautions do apply. What side effects may I notice from receiving this medicine? Side effects that you should report to your doctor or health multi care technician as soon as possible: allergic reactions like skin rash, itching or hives, swelling of the face, lips, or tongue bloody or watery diarrhea difficulty breathing or wheezing dizziness fever pain or trouble passing urine or change in the amount of urine redness, blistering, peeling or loosening of the skin, including inside the mouth seizures unusual bleeding or bruising unusually weak or tired yellowing of the eyes or skin Side effects that usually do not require medical attention (report to your doctor or health multi care technician if they continue or are bothersome): diarrhea headache genital or anal irritation loss of appetite nausea, vomiting stomach pain, upset, or gas What may interact with this medicine? aspirin and aspirin-like medicines carbamazepine medicines that treat or prevent blood clots like warfarin What if I miss a dose? If you miss a dose, take it as soon as you can. If it is almost time for your next dose, take only that dose. Do not take double or extra doses. Where should I keep my medicine? Keep out of the reach of children. Store at room temperature between 20 and 25 degrees C (68 and 77 degrees F). Throw away any unused medicine after the expiration date. What should I tell my health care provider before I take this medicine? They need to know if you have any of these conditions: bleeding problems kidney disease stomach or intestine problems (especially colitis) an unusual or allergic reaction to cefixime, other cephalosporin or penicillin antibiotics, other foods, dyes or preservatives or trying to get breast-feeding What should I watch for while using this medicine? Tell your doctor or health multi care technician if your symptoms do not improve or if you get new symptoms. Your doctor will monitor your condition and blood work as needed. Do not treat diarrhea with over the counter products. Contact your doctor if you have diarrhea that lasts more than 2 days or if it is severe and watery. This medicine can interfere with some urine glucose and some urine ketone tests. If you use such tests, talk with your health multi care technician. If you are being treated for a sexually transmitted disease, avoid sexual contact until you have finished your treatment. Having sex can infect your sexual partner. You have been given the following additional information: Bladder Infection, Female (Adult) Ondansetron Oral disintegrating tablet Cefixime Oral tablet (Electronically signed by Caio Mills Dr. 02/14/2017 20:46)
--- NOTE | 2017-02-15 04:48 | ED MED RECONCILIATION SUMMARY ---
Patient: STEPHANIE MOORE Medication Reconciliation Report [facility] VisitID: [id number] [address] [place] [address] 31y, F Registration Date/Time: 02/14/2017 Weight: 86.1 kg Height/Length: 67 in. BMI: 29.8 ALLERGIES: No Known Drug Allergy The patient's Home Medications are listed below: NONE. The source(s) of the original Home Medication information: Not obtained. The following Medications were given to the patient in the Emergency Department: IV NS IV Fluids bolus 1000 mL wide open, administered: 02/14/2017 5:11:00 AM Toradol [IVP] IVP 30 mg, administered: 02/14/2017 5:25:00 AM Zofran [IVP] IVP 4 mg, administered: 02/14/2017 5:27:00 AM Rocephin [IVPB] IVPB bolus 0, then 1 gm, administered: 02/14/2017 6:30:00 AM The following Medications were prescribed to the patient: Zofran (orally disintegrating tablets) 4 mg: take 1 orally every 6 hours as needed for nausea. Dispense ten (10). No refill. Substitution is permissible. -- Caio Mills Dr. Cefixime 400 mg: take 1 tab orally every day for 7 days. No refill. -- Caio Mills Dr.
--- NOTE | 2017-02-15 04:48 | ED MAR SUMMARY ---
..... Medication Administration Record [facility] [address] [place] [address] Patient: STEPHANIE MOORE Visit ID: [id number] 31y, F Weight: 86.1 kg Height/Length: 67 in BMI: 29.8 ALLERGIES: No Known Drug Allergy Start 05:11 02/14/2017 Adwoa Rae R.N., Stop 06:31 02/14/2017 Adwoa Rae R.N. Medication Administered: IV NS (SALINE), Dose: IV Fluids over 1 hour(s), Bolus: 1000 mL wide open, Dispensed: 1000 mL bag, Site: #1 left AC. Medication Ordered: IV NS : initial bolus none -, then 1000 mL/hr for X1 (NOW). Given 05:25 02/14/2017 Adwoa Rae R.N. Medication Administered: TORADOL [IVP], Dose: 30 mg IVP over 2 minute(s), Site: #1 left AC. Medication Ordered: Toradol IV 30 mg (NOW). Given 05:27 02/14/2017 Adwoa Rae R.N. Medication Administered: ZOFRAN [IVP] (ONDANSETRON HCL), Dose: 4 mg IVP over 2 minute(s), Site: #1 left AC. Medication Ordered: Zofran IV 4 mg (NOW). Start 06:30 02/14/2017 Adwoa Rae R.N. Medication Administered: ROCEPHIN [IVPB] (CEFTRIAXONE SODIUM), Dose: 1 gm IVPB over 20 minute(s), Dispensed: 50 mL bag, Site: #1 left AC. Medication Ordered: Rocephin IV 1 gm/50mL (NOW).
--- NOTE | 2017-02-15 04:48 | ED DISCHARGE INSTRUCTIONS ---
Patient: STEPHANIE MOORE General Instructions [facility] VisitID: [id number] [place] [address] 31y, F Registration Date/Time: 02/14/2017 Acute urinary tract infection with cystitis. INSTRUCTIONS Your Current Medications: CONTINUE TAKING THE FOLLOWING MEDICATIONS: None*. Prescription Medications: Zofran (orally disintegrating tablets) 4 mg: take 1 orally every 6 hours as needed for nausea. Dispense ten (10). No refill. Substitution is permissible. Cefixime 400 mg: take 1 tab orally every day for 7 days. No refill. Follow-up: Follow up with your doctor in about two days. Call for an appointment. Screening today revealed the patient's blood pressure to be in the pre-hypertensive range. The patient should follow up with a primary care provider for blood pressure management. ADDITIONAL INFORMATION Bladder Infection,Female (Adult) A bladder infection ("cystitis" or "UTI") usually causes a constant urge to urinate and a burning when passing urine. Urine may be cloudy, smelly or dark. There may be pain in the lower abdomen. A bladder infection occurs when bacteria from the vaginal area enter the bladder opening (urethra). This can occur from sexual intercourse, wearing tight clothing, dehydration and other factors. Home Care: Drink lots of fluids (at least 6-8 glasses a day, unless you must restrict fluids for other medical reasons). This will force the medicine into your urinary system and flush the bacteria out of your body. Avoid sexual intercourse until your symptoms are gone. Avoid caffeine, alcohol and spicy foods. These can irritate the bladder. A bladder infection is treated with antibiotics. You may also be given Pyridium (generic = phenazopyridine) to reduce the burning sensation. This medicine will cause your urine to become a bright orange color. The orange urine may stain clothing. You may wear a pad or panty-liner to protect clothing. Preventing Future Infections: Always wipe from front to back after a bowel movement. Keep the genital area clean and dry. Drink plenty of fluids each day to avoid dehydration. Both sexual partners should wash before intercourse. Urinate right after intercourse to flush out the bladder. Wear cotton underwear and cotton-lined panty hose; avoid tight-fitting pants. If you are on control pills and are having frequent bladder infections, discuss with your doctor. Follow Up: Return to this facility or see your doctor if ALL symptoms are not gone after three days of treatment. Get Prompt Medical Attention if any of the following occur: Fever of 100.4F (38C) or higher, or as directed by your healthcare provider No improvement by the third day of treatment Increasing back or abdominal pain Repeated vomiting; unable to keep medicine down Weakness, dizziness or fainting Vaginal discharge Pain, redness or swelling in the labia (outer vaginal area) Ondansetron Oral disintegrating tablet What is this medicine? ONDANSETRON (on YOANDY se ehsan) is used to treat nausea and vomiting caused by chemotherapy. It is also used to prevent or treat nausea and vomiting after surgery. How should I use this medicine? These tablets are made to dissolve in the mouth. Do not try to push the tablet through the foil backing. With dry hands, peel away the foil backing and gently remove the tablet. Place the tablet in the mouth and allow it to dissolve, then swallow. While you may take these tablets with water, it is not necessary to do so. Talk to your gyroscopic instrument mechanic regarding the use of this medicine in children. Special care may be needed. What side effects may I notice from receiving this medicine? Side effects that you should report to your doctor or health rn progressive care unit as soon as possible: allergic reactions like skin rash, itching or hives, swelling of the face, lips, or tongue breathing problems dizziness fast or irregular heartbeat feeling faint or lightheaded, falls fever and chills swelling of the hands and feet tightness in the chest Side effects that usually do not require medical attention (report to your doctor or health rn progressive care unit if they continue or are bothersome): constipation or diarrhea headache What may interact with this medicine? Do not take this medicine with any of the following medications: -apomorphine -cisapride -dofetilide -dronedarone -pimozide -thioridazine -ziprasidone This medicine may also interact with the following medications: -carbamazepine -phenytoin -rifampicin -tramadol -other medicines that prolong the QT interval (cause an abnormal heart rhythm) What if I miss a dose? If you miss a dose, take it as soon as you can. If it is almost time for your next dose, take only that dose. Do not take double or extra doses. Where should I keep my medicine? Keep out of the reach of children. Store between 2 and 30 degrees C (36 and 86 degrees F). Throw away any unused medicine after the expiration date. What should I tell my health care provider before I take this medicine? They need to know if you have any of these conditions: heart disease history of irregular heartbeat liver disease low levels of magnesium or potassium in the blood an unusual or allergic reaction to ondansetron, granisetron, other medicines, foods, dyes, or preservatives or trying to get breast-feeding What should I watch for while using this medicine? Check with your doctor or health rn progressive care unit as soon as you can if you have any sign of an allergic reaction. Cefixime Oral tablet What is this medicine? CEFIXIME (sef IX eem) is a cephalosporin antibiotic. It is used to treat certain kinds of bacterial infections. It will not work for colds, flu, or other viral infections. How should I use this medicine? Take this medicine by mouth with a glass of water. Follow the directions on the prescription label. You can take it with or without food. If it upsets your stomach, take it with food. Take your medicine at regular intervals. Do not take it more often than directed. Take all of your medicine as directed even if you think your are better. Do not skip doses or stop your medicine early. Talk to your gyroscopic instrument mechanic regarding the use of this medicine in children. While this drug may be prescribed for children as young as 6 months for selected conditions, precautions do apply. What side effects may I notice from receiving this medicine? Side effects that you should report to your doctor or health rn progressive care unit as soon as possible: allergic reactions like skin rash, itching or hives, swelling of the face, lips, or tongue bloody or watery diarrhea difficulty breathing or wheezing dizziness fever pain or trouble passing urine or change in the amount of urine redness, blistering, peeling or loosening of the skin, including inside the mouth seizures unusual bleeding or bruising unusually weak or tired yellowing of the eyes or skin Side effects that usually do not require medical attention (report to your doctor or health rn progressive care unit if they continue or are bothersome): diarrhea headache genital or anal irritation loss of appetite nausea, vomiting stomach pain, upset, or gas What may interact with this medicine? aspirin and aspirin-like medicines carbamazepine medicines that treat or prevent blood clots like warfarin What if I miss a dose? If you miss a dose, take it as soon as you can. If it is almost time for your next dose, take only that dose. Do not take double or extra doses. Where should I keep my medicine? Keep out of the reach of children. Store at room temperature between 20 and 25 degrees C (68 and 77 degrees F). Throw away any unused medicine after the expiration date. What should I tell my health care provider before I take this medicine? They need to know if you have any of these conditions: bleeding problems kidney disease stomach or intestine problems (especially colitis) an unusual or allergic reaction to cefixime, other cephalosporin or penicillin antibiotics, other foods, dyes or preservatives or trying to get breast-feeding What should I watch for while using this medicine? Tell your doctor or health rn progressive care unit if your symptoms do not improve or if you get new symptoms. Your doctor will monitor your condition and blood work as needed. Do not treat diarrhea with over the counter products. Contact your doctor if you have diarrhea that lasts more than 2 days or if it is severe and watery. This medicine can interfere with some urine glucose and some urine ketone tests. If you use such tests, talk with your health rn progressive care unit. If you are being treated for a sexually transmitted disease, avoid sexual contact until you have finished your treatment. Having sex can infect your sexual partner. You have been given the following additional information: Bladder Infection, Female (Adult) Ondansetron Oral disintegrating tablet Cefixime Oral tablet (Electronically signed by Caio Mills Dr. 02/14/2017 20:46)
--- NOTE | 2017-02-15 04:48 | ED MED RECONCILIATION SUMMARY ---
Patient: STEPHANIE MOORE Medication Reconciliation Report [facility] VisitID: [id number] [address] [place] [address] 31y, F Registration Date/Time: 02/14/2017 Weight: 86.1 kg Height/Length: 67 in. BMI: 29.8 ALLERGIES: No Known Drug Allergy The patient's Home Medications are listed below: NONE. The source(s) of the original Home Medication information: Not obtained. The following Medications were given to the patient in the Emergency Department: IV NS IV Fluids bolus 1000 mL wide open, administered: 02/14/2017 5:11:00 AM Toradol [IVP] IVP 30 mg, administered: 02/14/2017 5:25:00 AM Zofran [IVP] IVP 4 mg, administered: 02/14/2017 5:27:00 AM Rocephin [IVPB] IVPB bolus 0, then 1 gm, administered: 02/14/2017 6:30:00 AM The following Medications were prescribed to the patient: Zofran (orally disintegrating tablets) 4 mg: take 1 orally every 6 hours as needed for nausea. Dispense ten (10). No refill. Substitution is permissible. -- Caio Mills Dr. Cefixime 400 mg: take 1 tab orally every day for 7 days. No refill. -- Caio Mills Dr.
== END 2017-02-14 06:55 | disposition home or self-care (01) ==
LOC: ED SRH 04:31
DX: N30.01 Acute cystitis with hematuria (principal)
CPT/HCPCS: 90004; 90100; 90148; 90469; 92760; 92761; 92762; 92763; 92764; 92765; 92766; 92767; 93070; 95059